=== PATIENT | female | born 1995 | race Caucasian/White ===

== ENCOUNTER 2020-11-20 01:58 | Inpatient (IN) | payer SELFPAY ==
[2020-11-20 03:34] LABS: Hemoglobin 13.7 g/dL (12.0-16.0); Mean Corpuscular HGB CONC 32.2 g/dL (32.0-36.0); Mean Corpuscular Hemoglobin 27.8 pg (27.0-31.0); Mean Corpuscular Volume 86.4 fL (78.0-98.0); Mean Platelet Volume 7.4 fL (7.4-10.4); Platelet Count 279 thou/uL (130-400); RBC Distribution Width 12.4 % (11.5-14.5); Red Blood Cell (RBC) Count 4.93 mill/uL (4.20-5.40); White Blood Cell (WBC) Count 18.7 thou/uL (4.8-10.8)
[2020-11-20 03:46] LABS: Band 19 % (5-11); Lymphocytes 1 % (21-51); MDiff Complete? YES; Neutrophil 80 % (42-75); Platelet Morphology Comment Appears Adequate; RBC Morphology Normal
[2020-11-20] MEDS ORDERED: Bisacodyl 5 MG TAB PO PRN (03:47)
[2020-11-20] MEDS ORDERED: Acetaminophen 325 MG TAB PO PRN (03:47)
[2020-11-20] MEDS ORDERED: Ondansetron PF 4 MG/2 ML Vial IVP PRN (03:47)
[2020-11-20] MEDS ORDERED: Zolpidem Tartrate 5 MG TAB PO PRN (03:47)
[2020-11-20] MEDS ORDERED: Lidocaine Viscous Sol 2% 15 ml UD Cup SSW PRN (03:51)
[2020-11-20] MEDS: Sodium Chloride 0.9% 1,000 ML IV SCH ×2 (06:13→17:40)
[2020-11-20] MEDS: Morphine 2 MG/ML VIAL SLOW IVP PRN ×2 (06:13→15:13)
[2020-11-20] MEDS: cefTRIAXone\\ROCEPHIN 2 GM in Sodium Chloride 0.9% 100 ML IVPB SCH ×2 (06:20→17:35)
[2020-11-20 06:42] VITALS: BMI 27.8
[2020-11-20] MEDS: metroNIDAZOLE 500 MG in Premix Bag 1 BAG IVPB SCH ×2 (07:38→15:13)
[2020-11-20] MEDS ORDERED: Enoxaparin Sodium 40 MG/0.4 ML SYRINGE SC SCH (09:00)
[2020-11-20] MEDS: methylPREDNISolone Sod Succ 40 MG VIAL IVP SCH ×3 (11:43→23:40)
[2020-11-20 16:08] LABS: BHCG - Serum Negative (NEGATIVE)
[2020-11-20 16:10] LABS: Pregs Control Background? CLEAR/WHITE (CLR/WHITE); Pregs Control Bar Appear? YES (CONTROL BAR)
[2020-11-20] MEDS ORDERED: Hydrocortisone 1% Cream 30 GM TUBE ONE (18:08)
[2020-11-20] MEDS ORDERED: Ophthalmic Irrigation Solution 0 ML ONE (18:08)
[2020-11-20] MEDS ORDERED: Lidocaine 1% w/Epinephrine 1:100K 20 ML VIAL ONE (18:08)
[2020-11-20] MEDS ORDERED: Sodium Chloride 0.9% 0 ML ONE (18:08)
[2020-11-20] MEDS ORDERED: Chlorhexidine Gluconate 15 ML UDCUP SSP ONE (18:08)
[2020-11-20] MEDS ORDERED: Bacitracin Zinc Ointment 30 gm TUBE ONE (18:08)
[2020-11-20] MEDS ORDERED: Sodium Chloride 0.9% 10 ML ONE (18:17)
[2020-11-20] MEDS ORDERED: Fentanyl 100 MCG/2 ML VIAL ONE ×3 (18:51→21:03)
[2020-11-20] MEDS ORDERED: AFRIN NASAL MIST 15 ML BOT ONE (18:51)
[2020-11-20] MEDS ORDERED: Midazolam HCl 2 mg/2 ml Vial ONE (19:26)
[2020-11-20] MEDS ORDERED: Rocuronium Bromide 10 MG/ML (10ML VIAL) ONE (19:30)
[2020-11-20] MEDS ORDERED: Lidocaine 1% PF 5 ML VIAL ONE (19:30)
[2020-11-20] MEDS ORDERED: PROPOFOL 200 MG/20 ML VIAL ONE (19:30)
[2020-11-20] MEDS ORDERED: Dexamethasone 20 MG/5 ML VIAL ONE (19:30)
[2020-11-20] MEDS ORDERED: Ondansetron PF 4 MG/2 ML Vial ONE (19:30)
[2020-11-20] MEDS ORDERED: SUGAMMADEX SODIUM 200 MG/2 ML VIAL ONE (19:57)
[2020-11-20] MEDS ORDERED: Ketorolac Tromethamine 30 MG/ML VIAL IVP PRN (20:26)
[2020-11-20] MEDS ORDERED: Promethazine HCl 25 MG/ML VIAL SLOW IVP PRN (20:26)
[2020-11-20] MEDS ORDERED: Ondansetron HCl/PF 4 MG/2 ML Vial IVP PRN (20:26)
[2020-11-20] MEDS ORDERED: Meperidine HCl/PF 25 MG/ML VIAL SLOW IVP PRN (20:26)
[2020-11-20] MEDS ORDERED: HYDROmorphone 2 MG/ML VIAL SLOW IVP PRN (20:26)
[2020-11-20] MEDS ORDERED: HYDROmorphone 0.5 MG/0.5 ML SYRINGE ONE (20:47)
[2020-11-20] MEDS ORDERED: Ibuprofen 800 MG TAB PO PRN (20:49)
[2020-11-20] MEDS ORDERED: HYDROcodone/Acetaminophen 5/325 mg Tablet PO PRN ×2 (20:50)
[2020-11-20] MEDS ORDERED: Ketorolac Tromethamine 30 MG/ML VIAL ONE (21:12)
[2020-11-20] MEDS: Clindamycin/D5W 900 MG in Premix Bag 1 BAG IVPB SCH (23:40)
[2020-11-21] MEDS: Chlorhexidine Gluconate 15 ML UDCUP SSP SCH ×2 (01:30→07:54)
[2020-11-21] MEDS: Sodium Chloride 0.9% 1,000 ML IV SCH (02:41)
[2020-11-21] MEDS: methylPREDNISolone Sod Succ 40 MG VIAL IVP SCH ×2 (05:26→11:30)
[2020-11-21] MEDS: Clindamycin/D5W 900 MG in Premix Bag 1 BAG IVPB SCH (05:26)
[2020-11-21 05:59] LABS: Hemoglobin 12.5 g/dL (12.0-16.0); Mean Corpuscular HGB CONC 32.4 g/dL (32.0-36.0); Mean Corpuscular Volume 86.3 fL (78.0-98.0); Mean Platelet Volume 7.6 fL (7.4-10.4); Platelet Count 270 thou/uL (130-400); RBC Distribution Width 12.4 % (11.5-14.5); Red Blood Cell (RBC) Count 4.47 mill/uL (4.20-5.40); White Blood Cell (WBC) Count 18.9 thou/uL (4.8-10.8)
[2020-11-21 06:12] LABS: Band 32 % (5-11); Lymphocytes 5 % (21-51); MDiff Complete? YES; Neutrophil 63 % (42-75); Platelet Morphology Comment Appears Adequate
[2020-11-21 06:15] LABS: ALT (SGPT) 10 U/L (8-55); AST (SGOT) 11 U/L (5-34); Albumin 3.5 g/dL (3.5-5.0); Alkaline Phosphatase 88 U/L (40-110); Anion Gap 13 mmol/L (10-20); BUN (Urea Nitrogen) 12 mg/dL (7.0-18.7); Bilirubin, Total 0.3 mg/dL (0.2-1.2); Calc. Creatinine Clearance 167 mL/min (70-130); Calcium 8.7 mg/dL (7.8-10.44); Carbon Dioxide 21 mmol/L (22-29); Chloride 107 mmol/L (98-107); Globulin 2.8 g/dL (2.4-3.5); Glucose 137 mg/dL (70-105); Potassium 4.2 mmol/L (3.5-5.1); Protein, Total 6.3 g/dL (6.0-8.3); Sodium 137 mmol/L (136-145)
[2020-11-21] MEDS: HYDROcodone/Acetaminophen 7.5/325 mg Tablet PO PRN ×2 (07:54→13:10)
[2020-11-21 12:21] VITALS: BP 123/81; TEMP 97.9
== END 2020-11-21 12:55 | disposition home or self-care (01) | DRG 137 ==
LOC: ERS 01:58 → OBSVTOIN 03:25 → SURG B 03:25
PROVIDERS: ADMIT Internal Medicine; ATTEND Internal Medicine
PROC: 0C940ZZ Drainage of Buccal Mucosa, Open Approach (ICD-10-PCS; principal; 2020-11-20)
PROC: 0CDXXZ0 Extraction of Lower Tooth, Single, External Approach (ICD-10-PCS; 2020-11-20)
DX: K04.7 Periapical abscess without sinus (principal); K12.2 Cellulitis and abscess of mouth; Z20.822 Contact with and (suspected) exposure to COVID-19; Z82.49 Family history of ischemic heart disease and other diseases of the circulatory system
CPT/HCPCS: 36415; 80053; 84443; 84703; 85007; 85025; 85027; 87040; 87070; 87205; 96365; 96375; 96376; 99284; G0378; J0696; J1100; J1170; J1885; J2250; J2270; J2405; J2704; J2920; J3010; J3490